=== PATIENT | male | born 1970 | race Caucasian/White ===

== ENCOUNTER 2017-07-07 02:45 | Emergency (ER) | payer BC, OTHER ==
[~2017-07-07] VITALS: Ht 182.9 cm; Wt 90.7 kg
[2017-07-07 03:25] LABS: ABSOLUTE NEUTROPHILS 9.4 thou/uL (1.4-8.2); BASOPHILS 0.2 % (0.0-2.0); EOSINOPHILS 0.3 % (0.0-3.0); HEMOGLOBIN 16.3 gm/dL (14.0-18.0); LYMPHOCYTES 3.3 % (24.0-44.0); MCH 30.6 pg (26.0-34.0); MCHC 34.6 g/dL (28.0-37.0); MCV 88.5 fL (80.0-100.0); MONOCYTES 4.4 % (1.0-8.0); PLATELET COUNT 250 thou/uL (150-400); POLYS 91.8 % (36.0-66.0); RBC 5.32 mil/uL (4.50-6.00); RDW 12.9 % (10.5-14.5); WBC 10.2 thou/uL (4.0-11.0)
[2017-07-07 03:26] LABS: URINE BILIRUBIN NEGATIVE (Negative); URINE BLOOD TRACE (Negative); URINE CLARITY CLEAR; URINE COLOR YELLOW; URINE GLUCOSE-RANDOM* NEGATIVE (Negative); URINE KETONES TRACE (Negative); URINE LEUKOCYTES-REFLEX NEGATIVE (Negative); URINE NITRITE-REFLEX NEGATIVE (Negative); URINE PROTEIN (DIPSTICK) TRACE (Negative); URINE UROBILINOGEN 0.2 E.U./dl (0.2-1.0)
[2017-07-07 03:33] LABS: CALCIUM 8.7 mg/dL (8.5-10.1); CREATININE 1.1 mg/dL (0.7-1.3); POTASSIUM 3.6 mmol/L (3.5-5.1)
[2017-07-07 03:39] LABS: ALBUMIN 4.1 g/dL (3.4-5.0); DIRECT BILIRUBIN 0.2 mg/dL (<0.1-0.3); TOTAL BILIRUBIN 2.2 mg/dL (<0.1-1.0); TOTAL PROTEIN 7.4 g/dL (6.4-8.2)
[2017-07-07] MEDS ORDERED: PROTONIX40 M2 PO (07:05)
[2017-07-07] MEDS ORDERED: NORCO 5-325 TA1 EACH PO (07:30)
[2017-07-07] MEDS ORDERED: ZOFRAN ODT4 MG PO (07:30)
== END 2017-07-07 07:51 | disposition home or self-care (01) ==
LOC: ER 02:45
PROVIDERS: Emergency Medicine
DX: R10.13 Epigastric pain (principal); R11.2 Nausea with vomiting, unspecified; Z90.49 Acquired absence of other specified parts of digestive tract; Z98.890 Other specified postprocedural states